=== PATIENT | male | born 1955 | race Caucasian/White ===

== ENCOUNTER 2019-01-06 07:39 | Outpatient (CLI) | payer OTHER ==
--- NOTE | 2019-01-06 09:11 | ULT ---
BILATERAL CAROTID DUPLEX ULTRASOUND: DATE: 01/06/19 HISTORY: Tingling in hand. TECHNIQUE: Amos scale ultrasound with color flow and spectral Doppler imaging of the extracranial carotid artery systems performed bilaterally. FINDINGS: No visible plaque or significant intimal wall thickening is seen. The peak systolic velocity in the right ICA measures 62 cm/second with an end-diastolic velocity of 1 0 cm/second and a systolic ratio of 0.50. The peak systolic velocity in the left ICA measures 96 cm/second with an end-diastolic velocity of 18 cm/second and a systolic ratio of 0.73. Flow in both vertebral arteries remains antegrade. IMPRESSION: No evidence of hemodynamically significant stenosis. POS: OFF
== END 2019-01-06 07:40 | disposition home or self-care (01) ==
LOC: BICULT 07:39
PROVIDERS: ATTEND Family Medicine
DX: G45.9 Transient cerebral ischemic attack, unspecified (principal); R20.2 Paresthesia of skin
CPT/HCPCS: 93880

== ENCOUNTER 2019-02-03 15:13 | Outpatient (CLI) | payer OTHER ==
[~2019-02-03 15:13] MED LIST: Gadobenate Dimeglumine 529 MG/1 ML (20ML VIAL) ONE
[2019-02-03 15:55] LABS: Estimated GFR-MDRD - POC Greater than 90
--- NOTE | 2019-02-03 17:17 | MRI ---
BRAIN MRI WITH AND WITHOUT CONTRAST: Indication: [id number] with TIA. FINDINGS: There is age appropriate size of the ventricular system. No mass effect, midline shift, or acute terr itorial infarction. No hemorrhage susceptibility of pathologic intraaxial enhancement. Skull base ayana w voids are patent. [place] intraocular lenses are absent. Scattered parenchymal signal abnormalities favor mild chronic ischemic disease. IMPRESSION: 1. No acute intracranial abnormalities. 2. Mild chronic ischemic disease of the cerebral white matter. POS: C
== END 2019-02-03 15:14 | disposition home or self-care (01) ==
LOC: BICMRI 15:13
PROVIDERS: ATTEND Family Medicine
DX: G45.9 Transient cerebral ischemic attack, unspecified (principal); R20.2 Paresthesia of skin; I67.82 Cerebral ischemia
CPT/HCPCS: 70553; 82565; A9577

== ENCOUNTER 2019-06-26 05:56 | Day surgery (SDC) | payer OTHER ==
[2019-06-25 10:34] VITALS: BMI 31.4
[2019-06-26] MEDS ORDERED: Fentanyl 100 MCG/2 ML VIAL ONE ×3 (06:17→09:37)
[2019-06-26] MEDS ORDERED: Midazolam HCl 2 mg/2 ml Vial ONE ×2 (06:17→07:10)
[2019-06-26] MEDS ORDERED: ceFAZolin Sodium (SDC) 2 GM/100 ML BAG ONE (06:37)
[2019-06-26] MEDS ORDERED: Neomycin-Polymyxin 1 ML AMP ONE (07:04)
--- NOTE | 2019-06-26 11:24 | OP ---
DATE OF PROCEDURE: 06/26/2019 PREOPERATIVE DIAGNOSIS: Right transverse patellar fracture. POSTOPERATIVE DIAGNOSIS: Right transverse patellar fracture. PROCEDURE PERFORMED: Open reduction and internal fixation of right patella. ANESTHESIA: General. SERVICE CASHIER: Ana Nichole PA-C TOURNIQUET TIME: 58 minutes at 300 mmHg. IMPLANTS: Synthes 3.5-mm partially-threaded cancellous screws with tension band wire. COMPLICATIONS: None. DRAINS: None. SPECIMENS: None. OUTCOME: Near anatomic alignment. INDICATIONS: The patient is a 63-year-old gentleman who is status post unicompartmental knee replacement on the right side and last week, sustained a ground level fall landing on the point of his knee. He sustained fracture of the patella with approximately 5-mm diastasis and about a 3-mm step-off the joint surface. After discussion with the patient including risks and benefits, we decided to proceed with open reduction and internal fixation. I believe all questions have been answered. Informed consent has been obtained. We did discuss risks and benefits of the procedure. Risks include, but are not limited to bleeding, infection, nerve injury, knee arthritis, hardware failure, knee pain, knee stiffness, loss of limb or life. The patient appears to understand and does wish to proceed. Consent has been obtained. DESCRIPTION OF PROCEDURE: The patient was brought to the operating room, and a time-out performed followed by induction of general anesthesia. He was then positioned supine on the OR table, and a sterile prep and drape was performed of the right lower extremity. Next, the limb was exsanguinated with Esmarch bandage, tourniquet inflated to 300 mmHg. A midline anterior knee incision was made, and after skin sharply incised, dissection was carried down to the underlying quadriceps mechanism. Next, the periosteum was elevated off the midportion of the patella, revealing the underlying fracture. The fracture hematoma was lavaged from the fracture gap and then the fracture reduced and held in place with a bone tenaculum. Next, a Garnett tenaculum was applied across the fracture. This reduced the fracture to near anatomic level as checked with AP and lateral C-arm imaging. Next, two 3.5-mm partially-threaded cancellous screws were passed from the superior pole down to inferior pole under C-arm guidance in standard fashion. This was then followed by passage of a cerclage wire through each of the two cannulated screws. These were brought into a elizabeth-cross type fashion and then tightened getting good compression across the fracture. These wires were then cut and bent to right angles to try and avoid soft tissue irritation. The final AP and lateral C-arm images showed near-anatomic alignment of the fracture. The wound was then irrigated after the knee hematoma was drained through a small medial arthrotomy. Next, closure was performed with 0 Vicryl deep followed by 2-0 Vicryl and jazlyn for the skin. Xeroform gauze, Webril, and Mitch wrap dressing applied to the knee, and the knee was placed back in his hinged knee brace with the brace locked in extension. The patient was then transferred to recovery room in stable condition. Tourniquet was let down at the completion of dressing. There were no complications. He tolerated the procedure well. Job ID: [id number]
--- NOTE | 2019-06-26 17:12 | RAD ---
EXAM: INTRAOPERATIVE FLUOROSCOPY 06/26/19 HISTORY: ORIF right patella. EXPOSURE: 37.5 seconds. 2.02 mGy. FINDINGS: Two fluoroscopic images demonstrate internal fixation hardware traversing the patella. Horizontal fra cture is noted. Hemiarthroplasty along the medial aspect of the right knee is identified. IMPRESSION: Intraoperative fluoroscopy as above. POS: DANIELLE
== END 2019-06-26 10:50 | disposition home or self-care (01) ==
LOC: SDC 05:56
PROVIDERS: ATTEND Orthopaedic Surgery
PROC: 0QSD04Z Reposition Right Patella with Internal Fixation Device, Open Approach (ICD-10-PCS; principal; 2019-06-26)
DX: S82.031A Displaced transverse fracture of right patella, initial encounter for closed fracture (principal); Z96.651 Presence of right artificial knee joint; W19.XXXA Unspecified fall, initial encounter
CPT/HCPCS: 76000; C1769; J0690; J2250; J3010

== ENCOUNTER 2020-04-14 06:55 | Outpatient (CLI) | payer OTHER ==
[2020-04-14 12:33] LABS: Prothrombin Time 13.2 sec (12.0-14.7)
[2020-04-14 12:38] LABS: Bacteria/HPF None Seen HPF (None Seen); Bilirubin Negative (Negative); Blood, Urine Negative (Negative); Clarity Clear (Clear); Glucose, Urine (Dipstick) Normal (Negative); Leukocyte Negative Leu/uL (Negative); Nitrite Negative (Negative); Protein, Urine (Dipstick) Negative (Neg-Trace); RBC/HPF 0-3 HPF (0-3); Squamous Epithelial 0-3 HPF (0-3); Urobilinogen Normal mg/dL (Less than 2); WBC/HPF 0-3 HPF (0-3)
[2020-04-14 12:47] LABS: Anion Gap 14 mmol/L (10-20); BUN (Urea Nitrogen) 11 mg/dL (8.4-25.7); Calc. Creatinine Clearance 0 mL/min (70-130); Carbon Dioxide 23 mmol/L (23-31); Chloride 97 mmol/L (98-107); Estimated GFR-MDRD Greater than 90; Glucose 86 mg/dL (80-115); Potassium 4.7 mmol/L (3.5-5.1); Sodium 129 mmol/L (136-145)
[2020-04-14 13:21] LABS: Band 2 % (5-11); Eosinophils 5 % (0-10); Lymphocytes 27 % (21-51); MDiff Complete? YES; Macrocytosis SLIGHT = 6-15 cells (100X) (0-5/hpf); Mean Corpuscular HGB CONC 33.2 g/dL (32.0-36.0); Mean Corpuscular Hemoglobin 34.4 pg (27.0-31.0); Mean Platelet Volume 6.8 fL (7.4-10.4); Monocytes 7 % (0-10); Neutrophil 25 % (42-75); Platelet Count 308 thou/uL (130-400); Platelet Morphology Comment Appears Adequate; Polychromasia SLIGHT = 2-3 cells (100X) (0-2/hpf); RBC Distribution Width 11.9 % (11.5-14.5); Reactive Lymphocytes 34 % (0-10); Red Blood Cell (RBC) Count 3.79 mill/uL (4.70-6.10); Target Cells SLIGHT = 2-5 cells (100X) (0-1/hpf); Tear Drops SLIGHT = 2-5 cells (100X) (0-1/hpf); White Blood Cell (WBC) Count 5.5 thou/uL (4.8-10.8)
[2020-04-14 18:40] LABS: SARS-CoV-2 MS2 Positive; SARS-CoV-2 N Gene Negative; SARS-CoV-2 S Gene Negative; SARS-CoV-2 orf1ab Negative
--- NOTE | 2020-04-14 22:04 | EKG ---
Test Reason : Blood Pressure : / mmHG Vent. Rate : 050 BPM Atrial Rate : 050 BPM P-R Int : 236 ms QRS Dur : 100 ms QT Int : 474 ms P-R-T Axes : 002 005 013 degrees QTc Int : 432 ms Sinus bradycardia with 1st degree A-V block Otherwise normal ECG No previous ECGs available Confirmed by Shell FLEMING ([id number]) on 04/14/2020 10:04:05 PM Referred By: ALIS Confirmed By:Shell FLEMING
== END 2020-04-14 06:56 | disposition home or self-care (01) ==
LOC: LABBT 06:55
PROVIDERS: ATTEND Orthopaedic Surgery
DX: Z01.818 Encounter for other preprocedural examination (principal); Z11.59 Encounter for screening for other viral diseases; T84.093A Other mechanical complication of internal left knee prosthesis, initial encounter
CPT/HCPCS: 80048; 81001; 85025; 85610; 87081; 87635; 93005; 93010; U0003

== ENCOUNTER 2020-04-14 11:30 | Inpatient (IN) | payer OTHER ==
[2020-04-14 11:21] VITALS: BMI 31.9
[2020-04-19] MEDS ORDERED: Sodium Chloride 0.9% 100 ML ONE (07:59)
[2020-04-19] MEDS ORDERED: Vancomycin 1.5 GRAM/300 ML BAG 1.5 GM/300 ML BAG ONE (07:59)
[2020-04-19] MEDS ORDERED: Tranexamic Acid 1,000 MG/10 ML VIAL ONE (07:59)
[2020-04-19] MEDS ORDERED: Midazolam HCl 2 mg/2 ml Vial ONE (08:29)
[2020-04-19] MEDS ORDERED: Fentanyl 100 MCG/2 ML VIAL ONE ×3 (08:29→13:22)
[2020-04-19] MEDS ORDERED: diphenhydrAMINE 25 MG CAP PO PRN (09:40)
[2020-04-19] MEDS ORDERED: Zolpidem Tartrate 5 MG TAB PO PRN ×2 (09:40→10:27)
[2020-04-19] MEDS ORDERED: Fentanyl 100 MCG/2 ML VIAL SLOW IVP PRN ×2 (09:40→10:28)
[2020-04-19] MEDS ORDERED: Acetaminophen 325 MG TAB PO PRN ×2 (09:40→10:27)
[2020-04-19] MEDS ORDERED: HYDROcodone/Acetaminophen 10/325 mg Tablet PO PRN ×3 (09:40→10:27)
[2020-04-19] MEDS ORDERED: Ondansetron PF 4 MG/2 ML Vial IVP PRN ×2 (09:40→10:27)
[2020-04-19] MEDS ORDERED: Promethazine HCl 25 MG/ML VIAL IM PRN ×2 (09:40→10:27)
[2020-04-19] MEDS ORDERED: PROPOFOL 200 MG/20 ML VIAL ONE (10:15)
[2020-04-19] MEDS ORDERED: Ropivacaine 0.2% HCl/PF (40 MG/20 ML VIAL) ONE (10:15)
[2020-04-19] MEDS ORDERED: Ketorolac Tromethamine 30 MG/ML VIAL ONE (10:15)
[2020-04-19] MEDS ORDERED: Lidocaine 1% PF 5 ML VIAL ONE (10:15)
[2020-04-19] MEDS ORDERED: Bupivacaine HCl 0.5%/Epinephrine 1:200,000/PF 30 ml Vial ONE (10:15)
[2020-04-19] MEDS ORDERED: Ondansetron PF 4 MG/2 ML Vial ONE (10:15)
[2020-04-19] MEDS ORDERED: Ropivacaine HCl/PF 250 ML in Premix Bag 1 BAG NERVE BLCK SCH (10:27)
[2020-04-19] MEDS ORDERED: traMADol HCl 50 MG TAB PO PRN ×2 (10:27)
[2020-04-19] MEDS ORDERED: Ketorolac Tromethamine 30 MG/ML VIAL IVP SCH (14:00)
--- NOTE | 2020-04-19 15:52 | RAD ---
LEFT KNEE TWO VIEWS: 04/19/20 INDICATION: Postop. COMPARISON: None. FINDINGS: There is a large constrained total knee prosthesis. There is scattered intra-articular and periarticu lar soft tissue gas consistent with recent postoperative state. The prosthetic component projects in the expected position without gross evidence of complication. IMPRESSION: Postoperative left knee. POS: [facility]
[2020-04-19] MEDS: Ketorolac Tromethamine 30 MG/ML VIAL IVP SCH ×3 (16:02→23:57)
[2020-04-19] MEDS: CEFAZOLIN 2 GM in Premix Bag 1 BAG IVPB SCH ×2 (16:57→23:57)
[2020-04-19] MEDS: Sodium Chloride 0.9% 1,000 ML IV SCH ×2 (16:57→17:54)
[2020-04-19] MEDS: Aspirin 81 mg Enteric Coated Tablet PO SCH (20:55)
[2020-04-20] MEDS: Sodium Chloride 0.9% 1,000 ML IV SCH ×2 (05:13→17:17)
[2020-04-20] MEDS: Ketorolac Tromethamine 30 MG/ML VIAL IVP SCH ×4 (05:16→23:04)
[2020-04-20 06:06] LABS: Hemoglobin 10.9 g/dL (14.0-18.0); Mean Corpuscular HGB CONC 33.9 g/dL (32.0-36.0); Mean Corpuscular Hemoglobin 35.4 pg (27.0-31.0); Mean Platelet Volume 6.3 fL (7.4-10.4); Platelet Count 227 thou/uL (130-400); RBC Distribution Width 11.8 % (11.5-14.5); Red Blood Cell (RBC) Count 3.09 mill/uL (4.70-6.10); White Blood Cell (WBC) Count 7.1 thou/uL (4.8-10.8)
--- NOTE | 2020-04-20 07:21 | OP ---
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 PROCEDURE PERFORMED: 1. Left revision total knee arthroplasty. 2. Removal of painful hardware from the left leg. LUNCHROOM WORKER: Дмитрий Johnson PA-C ESTIMATED BLOOD LOSS: About 400. SPECIMENS: Culture. DRAINS: None. COMPLICATION: None. DESCRIPTION OF PROCEDURE: After appropriate consent was obtained, the patient was taken to the operating room where general anesthesia was induced. The left leg was prepped and draped in the usual sterile fashion. I made a longitudinal incision, scar, was carefully dissected down to patella. A good deep plane was created. Medial parapatellar arthrotomy was performed and a synovectomy was performed. 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 The femur was removed with an oscillating saw. The tibia was removed with osteotomes. The big problem here was there was a bent screw through the cement mantle of the tibia. Using C-arm fluoroscopy and being very careful not to totally destroy the tibial tubercle and insertion of the patellar tendon, we identified the screw and removed it with some difficulty. Pulsatile irrigation was performed again. I then reamed the femur to 21 mm and the tibia to about 18 mm. I created a trial with a #6 tibial base plate and a 50-mm stem and then built the femoral component using the femoral trial cutting blocks, so the implant was a size 5 femur with a 21 mm stem and a 4 mm offset and 5 mm distal buildup on medially and laterally. After appropriate irrigation performed and after all implants were assembled, the implants were cemented into place. The polyethylene was inserted. Irrigation performed again. The patellar tendon defect was repaired with #1 Vicryl, the arthrotomy was repaired with #2 Vicryl and #2 Quill, subcu closed with 0 Quill, skin was closed with 2-0 Stratafix, skin glue was applied, and a sterile dressing applied. Overall tourniquet time was 1 hour and 18 minutes. Job ID: [id number]
[2020-04-20] MEDS: Senokot S 8.6-50 MG TAB PO SCH ×2 (07:55→21:02)
[2020-04-20] MEDS: Ferrous Gluconate 324 MG TAB PO SCH ×2 (07:56→17:59)
[2020-04-20] MEDS: Multivitamin W/ Minerals 1 TAB PO SCH (07:56)
[2020-04-20] MEDS: Sotalol HCl 80 MG TAB PO SCH (07:56)
[2020-04-20] MEDS: Aspirin 81 mg Enteric Coated Tablet PO SCH ×2 (07:56→21:01)
--- NOTE | 2020-04-20 13:12 | PRG ---
DATE OF SERVICE: 04/20/2020 SUBJECTIVE: Lucas is a 64-year-old male, postop day 1 from a revision left total knee arthroplasty. He is doing very well and he is quite comfortable postoperatively. He has no complaints. He ambulated 50 feet on day of surgery and 285 feet this morning. OBJECTIVE: VITAL SIGNS: Temperature is 98.2, pulse is 57, respiratory rate is 16 and nonlabored, O2 saturation is 98% on room air, blood pressure is 113/74. GENERAL: He is alert and oriented to person, place, time, and situation. Responsive and appropriate with examiner. EXTREMITIES: His incision is clean. He is neurovascularly intact in the left lower extremity. No strike through is noted. LABORATORY DATA: Hemoglobin and hematocrit 10.9 and 32.2. IMPRESSION: A 64-year-old male, postoperative day 1, left total knee arthroplasty revision, doing well. PLAN: Continue current care. Probable discharge home tomorrow. Job ID: [id number]
[2020-04-20] MEDS: HYDROcodone/Acetaminophen 10/325 mg Tablet PO PRN ×2 (15:23→23:03)
[2020-04-21] MEDS: Sodium Chloride 0.9% 1,000 ML IV SCH (03:14)
[2020-04-21] MEDS: Ketorolac Tromethamine 30 MG/ML VIAL IVP SCH (05:01)
[2020-04-21 05:43] LABS: Hemoglobin 9.7 g/dL (14.0-18.0); Mean Corpuscular HGB CONC 32.3 g/dL (32.0-36.0); Mean Corpuscular Hemoglobin 33.9 pg (27.0-31.0); Mean Platelet Volume 6.4 fL (7.4-10.4); Platelet Count 208 thou/uL (130-400); RBC Distribution Width 11.9 % (11.5-14.5); Red Blood Cell (RBC) Count 2.87 mill/uL (4.70-6.10); White Blood Cell (WBC) Count 7.6 thou/uL (4.8-10.8)
[2020-04-21] MEDS: Sotalol HCl 80 MG TAB PO SCH (07:49)
[2020-04-21] MEDS: Multivitamin W/ Minerals 1 TAB PO SCH (07:50)
[2020-04-21] MEDS: Ferrous Gluconate 324 MG TAB PO SCH (07:50)
[2020-04-21] MEDS: Senokot S 8.6-50 MG TAB PO SCH (07:51)
[2020-04-21] MEDS: Aspirin 81 mg Enteric Coated Tablet PO SCH (07:51)
[2020-04-21 08:05] VITALS: BP 127/81; TEMP 97.7
--- NOTE | 2020-04-22 14:26 | DIS ---
DATE OF ADMISSION: 04/19/2020 DATE OF DISCHARGE: 04/21/2020 DISCHARGE DISPOSITION: Home. ADMISSION DIAGNOSIS: Failed left total knee arthroplasty. DISCHARGE DIAGNOSIS: Failed left total knee arthroplasty. OPERATIVE PROCEDURE: Revision left total knee arthroplasty. CONSULTANTS: [facility] and [facility]. BRIEF CLINICAL HISTORY: Lucas is a 64-year-old male, who was admitted to [facility], underwent above procedure on date of admission without intra-, rae-, or postoperative complication. 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 His hospital course was essentially unremarkable. At the time of discharge, the patient is afebrile, he is ambulatory in a full weightbearing fashion utilizing a rolling walker, tolerating regular diet, voiding without difficulty. His incision is clean and closed without any erythema. DISCHARGE MEDICATIONS: Please see medication reconciliation form. We will be happy to see the patient on an as-needed basis between now and his next scheduled appointment. CONDITION ON DISCHARGE: Stable. PROGNOSIS: Good. Job ID: [id number]
== END 2020-04-21 10:42 | disposition home or self-care (01) | DRG 468 ==
LOC: SJJU 04-19 06:59
PROVIDERS: ADMIT Orthopaedic Surgery; ATTEND Orthopaedic Surgery
PROC: 0SPD0JZ Removal of Synthetic Substitute from Left Knee Joint, Open Approach (ICD-10-PCS; principal; 2020-04-19)
PROC: 0SRD0J9 Replacement of Left Knee Joint with Synthetic Substitute, Cemented, Open Approach (ICD-10-PCS; 2020-04-19)
DX: T84.093A Other mechanical complication of internal left knee prosthesis, initial encounter (principal); Y83.8 Other surgical procedures as the cause of abnormal reaction of the patient, or of later complication, without mention of misadventure at the time of the procedure; Z11.59 Encounter for screening for other viral diseases; F17.210 Nicotine dependence, cigarettes, uncomplicated; T84.84XA Pain due to internal orthopedic prosthetic devices, implants and grafts, initial encounter
CPT/HCPCS: 36415; 76000; 85027; 87070; 87205; B4083; C1713; C1776; C1781; J0670; J0690; J1885; J2001; J2250; J2405; J2704; J2795; J3010; J3370; J3490

== ENCOUNTER 2022-06-02 06:45 | Emergency (ER) | payer OTHER, SELFPAY ==
[2022-06-02] MEDS ORDERED: Ketorolac Tromethamine 30 MG/ML VIAL ONE (08:01)
== END 2022-06-02 08:03 | disposition home or self-care (01) ==
LOC: ERS 06:45
DX: M54.50 Low back pain, unspecified (principal); M25.561 Pain in right knee; G89.29 Other chronic pain; F17.210 Nicotine dependence, cigarettes, uncomplicated
CPT/HCPCS: 96372; 99283; J1885

== ENCOUNTER 2022-06-09 19:42 | Emergency (ER) | payer SELFPAY ==
[2022-06-09] MEDS ORDERED: Morphine 4 MG/ML VIAL ONE (21:00)
== END 2022-06-09 20:45 | disposition home or self-care (01) ==
LOC: ERS 19:42
DX: M25.561 Pain in right knee (principal); M54.50 Low back pain, unspecified; G89.29 Other chronic pain; I48.91 Unspecified atrial fibrillation
CPT/HCPCS: 93005; 96372; J2270

== ENCOUNTER 2022-07-23 05:39 | Inpatient (IN) | payer BC ==
[2022-07-23] MEDS ORDERED: Tranexamic Acid 1,000 MG/10 ML VIAL ONE (06:06)
[2022-07-23] MEDS ORDERED: Sodium Chloride 0.9% 100 ML ONE ×2 (06:06→06:47)
[2022-07-23] MEDS ORDERED: Dexmedetomidine 200 MCG/2 ML VIAL ONE (06:14)
[2022-07-23] MEDS ORDERED: fentaNYL Citrate/PF 100 MCG/2 ML SYRINGE ONE ×2 (06:14→07:44)
[2022-07-23] MEDS ORDERED: Midazolam HCl 2 mg/2 ml Vial ONE (06:14)
[2022-07-23] MEDS ORDERED: Vancomycin (BATCH) 1.5 GRAM/300 ML BAG ONE (06:22)
[2022-07-23] MEDS ORDERED: Bupivacaine PF 0.5% 30 ML VIAL ONE ×2 (06:27→09:58)
[2022-07-23] MEDS ORDERED: Ondansetron PF 4 MG/2 ML Vial ONE (06:44)
[2022-07-23] MEDS ORDERED: Glycopyrrolate 0.2 MG/ML 5 ML SYRINGE ONE (06:44)
[2022-07-23] MEDS ORDERED: Dexamethasone 20 MG/5 ML VIAL ONE (06:44)
[2022-07-23] MEDS ORDERED: PROPOFOL 200 MG/20 ML VIAL ONE (06:44)
[2022-07-23] MEDS ORDERED: ePHEDrine 50 MG/ML VIAL ONE (06:44)
[2022-07-23] MEDS ORDERED: Ropivacaine 0.5% HCl/PF (150 MG/30 ML VIAL) ONE (06:44)
[2022-07-23] MEDS ORDERED: CEFAZOLIN 2 GM VIAL ONE (06:47)
[2022-07-23] MEDS ORDERED: Promethazine HCl 25 MG/ML VIAL IM PRN ×3 (06:58→09:22)
[2022-07-23] MEDS ORDERED: diphenhydrAMINE 25 MG CAP PO PRN (06:58)
[2022-07-23] MEDS ORDERED: Zolpidem Tartrate 5 MG TAB PO PRN ×2 (06:58→07:45)
[2022-07-23] MEDS ORDERED: HYDROcodone/Acetaminophen 10/325 mg Tablet PO PRN ×3 (06:58→07:45)
[2022-07-23] MEDS ORDERED: Ondansetron PF 4 MG/2 ML Vial IVP PRN ×2 (06:58→07:45)
[2022-07-23] MEDS ORDERED: Acetaminophen 325 MG TAB PO PRN (06:58)
[2022-07-23] MEDS: Sodium Chloride 0.9% 1,000 ML IV SCH ×3 (07:00→15:02)
[2022-07-23] MEDS ORDERED: Fentanyl 100 MCG/2 ML VIAL IV PRN (07:38)
[2022-07-23] MEDS ORDERED: Ropivacaine 0.2% 550 ML 550 ML NERVE BLCK SCH (07:45)
[2022-07-23] MEDS ORDERED: traMADol HCl 50 MG TAB PO PRN ×2 (07:45)
[2022-07-23] MEDS: Ferrous Gluconate 324 MG TAB PO SCH ×2 (08:00→17:32)
[2022-07-23] MEDS: Aspirin 81 mg Enteric Coated Tablet PO SCH ×2 (09:00→20:39)
[2022-07-23] MEDS: Sotalol HCl 80 MG TAB PO SCH (09:00)
[2022-07-23] MEDS ORDERED: Fentanyl 100 MCG/2 ML VIAL ONE ×2 (09:16→10:16)
[2022-07-23] MEDS ORDERED: Promethazine HCl 25 MG/ML VIAL IVPB PRN (09:22)
[2022-07-23] MEDS ORDERED: Ondansetron HCl/PF 4 MG/2 ML Vial IVP PRN (09:22)
[2022-07-23] MEDS: Ketorolac Tromethamine 30 MG/ML VIAL IVP SCH ×3 (13:52→23:40)
[2022-07-23] MEDS ORDERED: Ketorolac Tromethamine 30 MG/ML VIAL IVP SCH (14:00)
[2022-07-23] MEDS: CEFAZOLIN 2 GM in Sodium Chloride 0.9% 100 ML IVPB SCH ×2 (16:21→23:39)
[2022-07-23] MEDS: HYDROcodone/Acetaminophen 10/325 mg Tablet PO PRN (22:07)
[2022-07-24] MEDS: Sodium Chloride 0.9% 1,000 ML IV SCH (04:30)
[2022-07-24] MEDS: Ketorolac Tromethamine 30 MG/ML VIAL IVP SCH (05:48)
[2022-07-24 06:07] LABS: Hemoglobin 11.1 g/dL (14.0-18.0); Mean Corpuscular HGB CONC 34.4 g/dL (32.0-36.0); Mean Corpuscular Hemoglobin 35.1 pg (27.0-31.0); Mean Platelet Volume 6.7 fL (7.4-10.4); Platelet Count 263 thou/uL (130-400); RBC Distribution Width 11.6 % (11.5-14.5); Red Blood Cell (RBC) Count 3.15 mill/uL (4.70-6.10); White Blood Cell (WBC) Count 6.6 thou/uL (4.8-10.8)
[2022-07-24] MEDS: HYDROcodone/Acetaminophen 10/325 mg Tablet PO PRN (07:01)
[2022-07-24 08:28] VITALS: BP 106/67; TEMP 97.7
[2022-07-24] MEDS ORDERED: Senokot S 8.6-50 MG TAB PO SCH (09:00)
[2022-07-24] MEDS ORDERED: Multivitamin W/ Minerals 1 TAB PO SCH (09:00)
[2022-07-24] MEDS: Sotalol HCl 80 MG TAB PO SCH (09:05)
[2022-07-24] MEDS: Aspirin 81 mg Enteric Coated Tablet PO SCH (09:08)
[2022-07-24] MEDS: Ferrous Gluconate 324 MG TAB PO SCH (09:08)
== END 2022-07-24 09:55 | disposition home or self-care (01) | DRG 468 ==
LOC: SDC 05:39 → SJJU 13:15 → EDSTATUS 15:30
PROVIDERS: ADMIT Orthopaedic Surgery; ATTEND Orthopaedic Surgery
PROC: 0SPC0JZ Removal of Synthetic Substitute from Right Knee Joint, Open Approach (ICD-10-PCS; principal; 2022-07-23)
PROC: 0SRC0J9 Replacement of Right Knee Joint with Synthetic Substitute, Cemented, Open Approach (ICD-10-PCS; 2022-07-23)
DX: T84.032A Mechanical loosening of internal right knee prosthetic joint, initial encounter (principal); Y83.8 Other surgical procedures as the cause of abnormal reaction of the patient, or of later complication, without mention of misadventure at the time of the procedure; Z20.822 Contact with and (suspected) exposure to COVID-19; Z96.652 Presence of left artificial knee joint; Z79.899 Other long term (current) drug therapy
CPT/HCPCS: 36415; 76000; 85027; 87070; 87205; A4306; C1713; C1776; J0690; J1100; J1885; J2250; J2405; J2704; J2795; J3010; J3370; J3490; J7050; S0020

== ENCOUNTER 2023-01-25 16:54 | Inpatient (IN) | payer BC, MEDICARE ==
[2023-01-25 17:21] LABS: #Basophils 0.1 thou/uL (0.0-0.2); #Eosinphils 0.1 thou/uL (0.0-0.7); #Lymphocytes 1.7 thou/uL (1.20-3.40); #Monocytes 0.7 thou/uL (0.11-0.59); #Neutrophils 8.1 thou/uL (1.40-6.50); %Basophils 0.6 % (0.0-1.0); %Eosinophils 1.3 % (0.0-10.0); %Lymphocytes 15.9 % (21.0-51.0); %Monocytes 6.8 % (0.0-10.0); %Neutrophils 75.4 % (42.0-75.0); Mean Corpuscular HGB CONC 34.4 g/dL (32.0-36.0); Mean Corpuscular Hemoglobin 34.6 pg (27.0-31.0); Mean Platelet Volume 5.9 fL (7.4-10.4); Platelet Count 307 10x3/uL (130-400); RBC Distribution Width 12.3 % (11.5-14.5); Red Blood Cell (RBC) Count 3.75 mill/uL (4.70-6.10); White Blood Cell (WBC) Count 10.8 10x3/uL (4.8-10.8)
[2023-01-25 17:42] LABS: ALT (SGPT) 13 U/L (8-55); AST (SGOT) 15 U/L (5-34); Albumin 4.2 g/dL (3.4-4.8); Alkaline Phosphatase 55 U/L (40-110); Anion Gap 13 mmol/L (10-20); BUN (Urea Nitrogen) 10 mg/dL (8.4-25.7); Bilirubin, Total 0.8 mg/dL (0.2-1.2); Calc. Creatinine Clearance 0 mL/min (70-130); Calcium 8.8 mg/dL (7.8-10.44); Carbon Dioxide 23 mmol/L (23-31); Chloride 94 mmol/L (98-107); Estimated GFR 98; Globulin 3.1 g/dL (2.4-3.5); Glucose 107 mg/dL (80-115); Potassium 3.9 mmol/L (3.5-5.1); Protein, Total 7.3 g/dL (5.8-8.1); Sodium 126 mmol/L (136-145)
[2023-01-25 19:33] LABS: Bilirubin Negative (Negative); Blood, Urine Negative (Negative); Clarity Clear (Clear); Glucose, Urine (Dipstick) Normal (Negative); Ketone, Urine 10 mg/dL (Negative); Leukocyte Negative Leu/uL (Negative); Nitrite Negative (Negative); Protein, Urine (Dipstick) Negative (Neg-Trace); Specific Gravity, Urine 1.012 (1.002-1.036); Urobilinogen Normal mg/dL (Less than 2); pH, Urine 6.5 (5.0-9.0)
[2023-01-25] MEDS ORDERED: Ketorolac Tromethamine 30 MG/ML VIAL ONE (19:50)
[2023-01-25] MEDS ORDERED: Acetaminophen 500 MG TAB ONE (19:50)
[2023-01-25] MEDS ORDERED: Lidocaine Viscous Sol 2% 15 ml UD Cup ONE (19:50)
[2023-01-25] MEDS ORDERED: Milk Of Magnesia 30 ML UDCUP ONE (19:50)
[2023-01-25] MEDS ORDERED: LORazepam 2 MG/ML SYR.(CARPUJECT) ONE (20:09)
[2023-01-25] MEDS ORDERED: Piperacillin/Tazobactam 4.5 GM VIAL ONE (21:33)
[2023-01-25] MEDS ORDERED: Vancomycin 1 GM/200 ML (FROZEN) BAG ONE (21:47)
[2023-01-25 23:05] LABS: SARS-CoV-2 NAA Rapid Test Not Detected (NotDetected)
[2023-01-25] MEDS ORDERED: Acetaminophen 325 MG TAB PO PRN (23:45)
[2023-01-25] MEDS ORDERED: Ondansetron ODT 4 MG TAB SL PRN (23:45)
[2023-01-25] MEDS ORDERED: Ondansetron PF 4 MG/2 ML Vial IVP PRN (23:45)
[2023-01-25] MEDS ORDERED: Lorazepam 2 MG/ML VIAL SLOW IVP PRN (23:59)
[2023-01-26] MEDS: Sodium Chloride 0.9% 1,000 ML IV SCH ×2 (00:20→08:20)
[2023-01-26 00:37] VITALS: BMI 30.2
[2023-01-26] MEDS: Piperacillin/Tazobactam 3.375 GM in Sodium Chloride 0.9% 100 ML IVPB SCH ×2 (02:11→09:13)
[2023-01-26] MEDS ORDERED: Morphine 4 MG/ML VIAL SLOW IVP PRN (08:36)
[2023-01-26] MEDS ORDERED: Morphine 2 MG/ML VIAL SLOW IVP PRN (08:36)
[2023-01-26] MEDS ORDERED: hydrALAZINE 20 MG/ML VIAL SLOW IVP PRN (08:36)
[2023-01-26] MEDS ORDERED: Ondansetron PF 4 MG/2 ML Vial IVP PRN (08:36)
[2023-01-26] MEDS ORDERED: Promethazine HCl 25 MG/ML VIAL IM PRN ×2 (08:36→12:13)
[2023-01-26] MEDS ORDERED: Ipratropium/Albuterol 3 ML NEB NEB PRN (08:36)
[2023-01-26] MEDS ORDERED: Piperacillin/Tazobactam 3.375 GM in Sodium Chloride 0.9% 100 ML IVPB SCH (08:45)
[2023-01-26] MEDS ORDERED: Lactated Ringer's 1,000 ML IV SCH (08:45)
[2023-01-26] MEDS: Famotidine 20 MG TAB PO SCH ×2 (08:55→20:10)
[2023-01-26] MEDS: Famotidine/PF 20 mg/2ml Vial SLOW IVP SCH ×2 (09:05→20:13)
[2023-01-26] MEDS ORDERED: Morphine 4 MG/ML VIAL ONE (10:12)
[2023-01-26] MEDS ORDERED: Bupivacaine HCl 0.5%/Epinephrine 1:200,000/PF 30 ml Vial ONE (11:27)
[2023-01-26] MEDS ORDERED: fentaNYL PF 100 MCG/2 ML SYRINGE ONE (11:33)
[2023-01-26] MEDS ORDERED: Ondansetron PF 4 MG/2 ML Vial ONE (11:52)
[2023-01-26] MEDS ORDERED: Vecuronium 10 MG VIAL ONE (11:52)
[2023-01-26] MEDS ORDERED: NEOSTIGMINE 3 MG/3 ML SYR 3 MG/3 ML SYRINGE ONE (11:52)
[2023-01-26] MEDS ORDERED: Glycopyrrolate 0.2 MG/ML 5 ML SYRINGE ONE (11:52)
[2023-01-26] MEDS ORDERED: Succinylcholine Chloride 100 MG/5 ML SYRINGE FS ONE (11:52)
[2023-01-26] MEDS ORDERED: Ketorolac Tromethamine 30 MG/ML VIAL ONE (11:52)
[2023-01-26] MEDS ORDERED: PROPOFOL 200 MG/20 ML VIAL ONE (11:52)
[2023-01-26] MEDS ORDERED: Dexamethasone 20 MG/5 ML VIAL ONE (11:52)
[2023-01-26] MEDS ORDERED: Morphine Sulfate 2 MG/ML SYRINGE SLOW IVP PRN (12:13)
[2023-01-26] MEDS ORDERED: HYDROmorphone 2 MG/ML VIAL SLOW IVP PRN (12:13)
[2023-01-26] MEDS ORDERED: Ondansetron HCl/PF 4 MG/2 ML Vial IVP PRN (12:13)
[2023-01-26] MEDS ORDERED: PACU-Morphine 4MG/ML VIAL SLOW IVP PRN (12:13)
[2023-01-26] MEDS ORDERED: HYDROcodone/Acetaminophen 5/325 mg Tablet PO PRN ×2 (13:24)
[2023-01-26] MEDS ORDERED: Metoprolol Tartrate 5 MG/5 ML VIAL ONE (13:41)
[2023-01-26] MEDS ORDERED: Metoprolol Tartrate 5 MG/5 ML VIAL IVP PRN (13:46)
[2023-01-26] MEDS ORDERED: Multivit, Therapeutic 1 TAB PO SCH (14:15)
[2023-01-26] MEDS: Ketorolac Tromethamine 30 MG/ML VIAL IVP SCH ×3 (15:06→23:54)
[2023-01-26 16:13] LABS: Anion Gap 15 mmol/L (10-20); BUN (Urea Nitrogen) 8 mg/dL (8.4-25.7); Calc. Creatinine Clearance 150 mL/min (70-130); Calcium 8.6 mg/dL (7.8-10.44); Carbon Dioxide 17 mmol/L (23-31); Chloride 103 mmol/L (98-107); Estimated GFR 101; Glucose 93 mg/dL (80-115); Sodium 131 mmol/L (136-145)
[2023-01-26] MEDS ORDERED: Diltiazem HCl 125 MG, Admixture Fee 1 EACH in Sodium Chloride 0.9% 100 ML IVPB SCH (16:30)
[2023-01-26 16:33] LABS: Free T4 (Free Thyroxine) 1.02 ng/dL (0.70-1.48); Thyroid Stimulating Hormone 0.6771 uIU/mL (0.35-4.94)
[2023-01-26] MEDS: Folic Acid 1 MG, Thiamine HCl 100 MG in Dextrose 5 %-0.45 % NaCl 1,000 ML IV SCH (18:46)
[2023-01-26] MEDS ORDERED: Acetaminophen 325 MG TAB PO PRN (20:36)
[2023-01-27 05:18] LABS: Anion Gap 8 mmol/L (10-20); BUN (Urea Nitrogen) 10 mg/dL (8.4-25.7); Calc. Creatinine Clearance 161 mL/min (70-130); Calcium 8.4 mg/dL (7.8-10.44); Carbon Dioxide 24 mmol/L (23-31); Chloride 100 mmol/L (98-107); Estimated GFR 103; Glucose 127 mg/dL (80-115); Potassium 3.7 mmol/L (3.5-5.1); Sodium 128 mmol/L (136-145)
[2023-01-27] MEDS: Ketorolac Tromethamine 30 MG/ML VIAL IVP SCH ×3 (05:59→17:59)
[2023-01-27] MEDS: Famotidine 20 MG TAB PO SCH ×2 (08:39→20:43)
[2023-01-27] MEDS: Multivit, Therapeutic 1 TAB PO SCH (08:40)
[2023-01-27] MEDS ORDERED: Flecainide 50 MG TAB PO SCH (10:45)
[2023-01-27] MEDS: Famotidine/PF 20 mg/2ml Vial SLOW IVP SCH (13:55)
[2023-01-27] MEDS: Folic Acid 1 MG, Thiamine HCl 100 MG in Dextrose 5 %-0.45 % NaCl 1,000 ML IV SCH (15:54)
[2023-01-28 05:16] LABS: Anion Gap 13 mmol/L (10-20); BUN (Urea Nitrogen) 12 mg/dL (8.4-25.7); Calc. Creatinine Clearance 144 mL/min (70-130); Calcium 8.7 mg/dL (7.8-10.44); Carbon Dioxide 23 mmol/L (23-31); Chloride 98 mmol/L (98-107); Estimated GFR 99; Glucose 83 mg/dL (80-115); Potassium 3.8 mmol/L (3.5-5.1); Sodium 130 mmol/L (136-145)
[2023-01-28] MEDS ORDERED: Heparin 10,000 UNITS/ 10 ML VIAL ONE (06:22)
[2023-01-28] MEDS ORDERED: Verapamil 5 MG/2 ML VIAL ONE (06:22)
[2023-01-28] MEDS ORDERED: Lidocaine 1% (PF) 30 ML VIAL ONE (06:22)
[2023-01-28] MEDS ORDERED: Adenosine 6 MG/2 ML VIAL ONE (06:22)
[2023-01-28] MEDS ORDERED: Nitroglycerin 50 MG/250 ML BOT 0 ML ONE (06:22)
[2023-01-28] MEDS: Ketorolac Tromethamine 30 MG/ML VIAL IVP SCH ×3 (07:13→11:35)
[2023-01-28 08:02] VITALS: TEMP 98.2
[2023-01-28] MEDS: Famotidine 20 MG TAB PO SCH (08:52)
[2023-01-28] MEDS: Multivit, Therapeutic 1 TAB PO SCH (08:52)
[2023-01-28] MEDS ORDERED: Thiamine 100 MG TAB PO SCH (09:00)
[2023-01-28] MEDS ORDERED: Folic Acid 1 MG TAB PO SCH (09:00)
[2023-01-28 11:48] VITALS: BP 163/102
[2023-01-29] MEDS ORDERED: FLU VACC QS2022-23(65YR UP)/PF 240 MCG/0.7 ML SYRINGE IM ONE (09:00)
== END 2023-01-28 15:00 | disposition home or self-care (01) | DRG 339 ==
LOC: ERS 16:54 → SURG B 22:16 → SURG A 01-26 14:20 → 2NO 01-26 14:46
PROVIDERS: ADMIT Surgery; ATTEND Internal Medicine
PROC: 0DTJ4ZZ Resection of Appendix, Percutaneous Endoscopic Approach (ICD-10-PCS; principal; 2023-01-26)
DX: K35.32 Acute appendicitis with perforation, localized peritonitis, and gangrene, without abscess (principal); E87.1 Hypo-osmolality and hyponatremia; Z96.653 Presence of artificial knee joint, bilateral; M19.90 Unspecified osteoarthritis, unspecified site; F10.10 Alcohol abuse, uncomplicated; I48.0 Paroxysmal atrial fibrillation; Z20.822 Contact with and (suspected) exposure to COVID-19; Z90.49 Acquired absence of other specified parts of digestive tract; Z98.890 Other specified postprocedural states; Z90.81 Acquired absence of spleen; Z91.14 Patient's other noncompliance with medication regimen
CPT/HCPCS: 36415; 36416; 74176; 80048; 80053; 81003; 84439; 84443; 84481; 85025; 88304; 93005; 93010; 93306; 96361; 96365; 96375; A4649; C1889; J0153; J1100; J1644; J1885; J2001; J2060; J2270; J2405; J2543; J2704; J3370-JW; J3411; J3490; J7042; J7050; J7120; S0028; U0002

== ENCOUNTER 2023-03-01 05:45 | Day surgery (SDC) | payer MEDICARE ==
[2023-02-27 12:38] VITALS: BMI 28.2
[2023-03-01] MEDS ORDERED: Lidocaine 1% PF 5 ML VIAL ONE (09:56)
[2023-03-01] MEDS ORDERED: PROPOFOL 200 MG/20 ML VIAL ONE (09:56)
[2023-03-01] MEDS ORDERED: Flecainide 50 MG TAB PO SCH ×2 (11:00→21:00)
== END 2023-03-01 11:45 | disposition home or self-care (01) ==
LOC: SDC 05:45
PROVIDERS: ATTEND Internal Medicine Cardiovascular Disease
PROC: 5A2204Z Restoration of Cardiac Rhythm, Single (ICD-10-PCS; principal; 2023-03-01)
DX: I48.0 Paroxysmal atrial fibrillation (principal); I08.1 Rheumatic disorders of both mitral and tricuspid valves; F10.10 Alcohol abuse, uncomplicated; E66.9 Obesity, unspecified; Z68.29 Body mass index [BMI] 29.0-29.9, adult; Z96.653 Presence of artificial knee joint, bilateral; Z90.81 Acquired absence of spleen; Z79.01 Long term (current) use of anticoagulants; Z79.899 Other long term (current) drug therapy
CPT/HCPCS: 92960; 93005; 93010; 93312; J2704

== ENCOUNTER 2023-07-31 05:46 | Day surgery (SDC) | payer MEDICARE ==
[2023-07-26 16:17] VITALS: BMI 29.5
[2023-07-26 16:54] LABS: Hemoglobin 13.4 g/dL (13.5-17.5); Mean Corpuscular HGB CONC 35.3 g/dL (32.0-36.0); Mean Corpuscular Hemoglobin 33.7 pg (27.0-33.0); Mean Corpuscular Volume 95.5 fl (81.2-95.1); Platelet Count 299 10x3/uL (150-450); RBC Distribution Width 12.6 % (11.5-14.5); Red Blood Cell (RBC) Count 3.98 10x6/uL (4.32-5.72); White Blood Cell (WBC) Count 6.4 10x3/uL (3.5-10.5)
[2023-07-26 17:15] LABS: PTT 29.8 sec (22.0-33.0); Prothrombin Time 10.8 sec (9.5-12.1)
[2023-07-26 17:16] LABS: Anion Gap 14 mmol/L (10-20); BUN (Urea Nitrogen) 13 mg/dL (8.4-25.7); Calc. Creatinine Clearance 139 mL/min (70-130); Calcium 9.4 mg/dL (7.8-10.44); Carbon Dioxide 22 mmol/L (23-31); Chloride 98 mmol/L (98-107); Estimated GFR 99; Glucose 85 mg/dL (80-115); Potassium 4.5 mmol/L (3.5-5.1); Sodium 129 mmol/L (136-145)
[2023-07-31] MEDS ORDERED: Heparin 25,000 units/D5W 500 ML ONE (06:51)
[2023-07-31] MEDS ORDERED: Heparin 10,000 UNITS/ 10 ML VIAL ONE (06:51)
[2023-07-31] MEDS ORDERED: Protamine Sulfate 50 MG/5 ML VIAL ONE (06:51)
[2023-07-31] MEDS ORDERED: Vasopressin 20 UNITS/ML VIAL ONE (07:08)
[2023-07-31] MEDS ORDERED: fentaNYL PF 100 MCG/2 ML SYRINGE ONE ×2 (07:08→11:51)
[2023-07-31] MEDS ORDERED: SUGAMMADEX SODIUM 200 MG/2 ML VIAL ONE (07:08)
[2023-07-31] MEDS ORDERED: Dexamethasone 20 MG/5 ML VIAL ONE (07:57)
[2023-07-31] MEDS ORDERED: Vecuronium 10 MG VIAL ONE (07:57)
[2023-07-31] MEDS ORDERED: NEOSTIGMINE 3 MG/3 ML SYR 3 MG/3 ML SYRINGE ONE (07:57)
[2023-07-31] MEDS ORDERED: Glycopyrrolate 0.2 MG/ML 5 ML SYRINGE ONE (07:57)
[2023-07-31] MEDS ORDERED: Rocuronium Bromide 10 MG/ML (10ML VIAL) ONE (07:57)
[2023-07-31] MEDS ORDERED: Ondansetron PF 4 MG/2 ML Vial ONE (07:57)
[2023-07-31] MEDS ORDERED: PROPOFOL 200 MG/20 ML VIAL ONE (07:57)
[2023-07-31] MEDS ORDERED: Lidocaine 1% PF 5 ML VIAL ONE (07:57)
[2023-07-31] MEDS ORDERED: Isoproterenol 0.2 MG/1 ML AMP ONE (09:00)
== END 2023-07-31 16:10 | disposition home or self-care (01) ==
LOC: SDC 05:46
PROVIDERS: ATTEND Internal Medicine Cardiovascular Disease
DX: I48.0 Paroxysmal atrial fibrillation (principal); I08.3 Combined rheumatic disorders of mitral, aortic and tricuspid valves; I48.3 Typical atrial flutter; Z79.83 Long term (current) use of bisphosphonates; Z90.49 Acquired absence of other specified parts of digestive tract; Z79.01 Long term (current) use of anticoagulants; Z79.899 Other long term (current) drug therapy
CPT/HCPCS: 80048; 85027; 85347 ×2; 85610; 85730; 93005; 93622; 93623; 93655; 93656; 93657; C1732 ×3; C1759; C1760; C1894 ×2; 93010; J1100; J1644; J2405; J2704; J2720

== ENCOUNTER 2023-09-09 05:53 | Day surgery (SDC) | payer MEDICARE ==
[2023-09-06 15:57] VITALS: BMI 29.5
[2023-09-06 16:40] LABS: Hematocrit 35.8 % (38.8-50.0); Hemoglobin 12.6 g/dL (13.5-17.5); Mean Corpuscular HGB CONC 35.2 g/dL (32.0-36.0); Mean Corpuscular Hemoglobin 33.6 pg (27.0-33.0); Mean Corpuscular Volume 95.5 fl (81.2-95.1); Mean Platelet Volume 8.9 fl (7.4-10.4); Platelet Count 281 10x3/uL (150-450); RBC Distribution Width 12.2 % (11.5-14.5); Red Blood Cell (RBC) Count 3.75 10x6/uL (4.32-5.72)
[2023-09-06 16:41] LABS: PTT 30.2 sec (22.0-33.0); Prothrombin Time 11.2 sec (9.5-12.1)
[2023-09-06 18:30] LABS: Anion Gap 17 mmol/L (10-20); BUN (Urea Nitrogen) 13 mg/dL (8.4-25.7); Calc. Creatinine Clearance 139 mL/min (70-130); Calcium 8.8 mg/dL (7.8-10.44); Carbon Dioxide 19 mmol/L (23-31); Chloride 101 mmol/L (98-107); Estimated GFR 99; Glucose 86 mg/dL (80-115); Potassium 4.4 mmol/L (3.5-5.1); Sodium 133 mmol/L (136-145)
[2023-09-09] MEDS ORDERED: PROPOFOL 200 MG/20 ML VIAL ONE (07:54)
== END 2023-09-09 09:03 | disposition home or self-care (01) ==
LOC: SDC 05:53
PROVIDERS: ATTEND Internal Medicine Cardiovascular Disease
PROC: 5A2204Z Restoration of Cardiac Rhythm, Single (ICD-10-PCS; principal; 2023-09-09)
DX: I48.0 Paroxysmal atrial fibrillation (principal); I48.3 Typical atrial flutter; Z79.01 Long term (current) use of anticoagulants; Z90.49 Acquired absence of other specified parts of digestive tract
CPT/HCPCS: 80048; 85027; 85610; 85730; 92960; 93005; 93010; J2704

== ENCOUNTER → 2023-12-23 | Day surgery (SDC) | payer MEDICARE ==
[2023-12-20 09:17] VITALS: BMI 29.5
[~2023-12-23] MED LIST changes: -Gadobenate Dimeglumine 529 MG/1 ML (20ML VIAL) ONE; +PROPOFOL 20 ML ONE
[2023-12-23 06:46] LABS: #Basophils 0.1 thou/uL (0.0-0.2); #Eosinphils 0.4 thou/uL (0.0-0.7); #Monocytes 0.5 thou/uL (0.11-0.59); #Neutrophils 1.2 thou/uL (1.40-6.50); %Basophils 1.5 % (0.0-1.0); %Eosinophils 7.9 % (0.0-10.0); %Lymphocytes 54.8 % (21.0-51.0); %Neutrophils 25.6 % (42.0-75.0); Hematocrit 40.2 % (42.0-52.0); Hemoglobin 13.9 g/dL (14.0-18.0); Mean Corpuscular HGB CONC 34.6 g/dL (32.0-36.0); Mean Corpuscular Hemoglobin 33.5 pg (27.0-31.0); Mean Corpuscular Volume 96.9 fl (78.0-98.0); Mean Platelet Volume 8.9 fL (7.4-10.4); Platelet Count 271 10x3/uL (130-400); Red Blood Cell (RBC) Count 4.15 mill/uL (4.70-6.10); White Blood Cell (WBC) Count 4.7 10x3/uL (4.8-10.8)
[2023-12-23 07:13] LABS: Anion Gap 10 mmol/L (10-20); BUN (Urea Nitrogen) 17 mg/dL (8.4-25.7); Calc. Creatinine Clearance 126 mL/min (70-130); Calcium 9.4 mg/dL (7.8-10.44); Carbon Dioxide 24 mmol/L (23-31); Chloride 99 mmol/L (98-107); Estimated GFR 96; Glucose 86 mg/dL (80-115); Potassium 4.4 mmol/L (3.5-5.1); Sodium 129 mmol/L (136-145)
== END ==
LOC: SDC 05:48
PROVIDERS: ATTEND Internal Medicine Cardiovascular Disease
PROC: B245ZZ4 Ultrasonography of Left Heart, Transesophageal (ICD-10-PCS; principal; 2023-12-23)
DX: I48.0 Paroxysmal atrial fibrillation (principal); I48.92 Unspecified atrial flutter; I08.2 Rheumatic disorders of both aortic and tricuspid valves
CPT/HCPCS: 80048; 85025; 93005; 93010; 93312; J2704

== ENCOUNTER 2024-01-08 06:38 | Day surgery (SDC) | payer MEDICARE ==
[2024-01-03 15:16] VITALS: BMI 29.5
[2024-01-03 15:58] LABS: Hematocrit 39.5 % (38.8-50.0); Mean Corpuscular HGB CONC 35.4 g/dL (32.0-36.0); Mean Corpuscular Hemoglobin 33.7 pg (27.0-33.0); Mean Platelet Volume 8.8 fl (7.4-10.4); Platelet Count 345 10x3/uL (150-450); RBC Distribution Width 12.5 % (11.5-14.5); Red Blood Cell (RBC) Count 4.16 10x6/uL (4.32-5.72); White Blood Cell (WBC) Count 6.5 10x3/uL (3.5-10.5)
[2024-01-03 16:02] LABS: Anion Gap 13 mmol/L (10-20); BUN (Urea Nitrogen) 16 mg/dL (8.4-25.7); Calc. Creatinine Clearance 131 mL/min (70-130); Calcium 9.1 mg/dL (7.8-10.44); Carbon Dioxide 24 mmol/L (23-31); Chloride 99 mmol/L (98-107); Estimated GFR 97; Glucose 86 mg/dL (80-115); Potassium 4.4 mmol/L (3.5-5.1); Sodium 132 mmol/L (136-145)
[2024-01-03 16:06] LABS: PTT 29.4 sec (22.0-33.0); Prothrombin Time 10.8 sec (9.5-12.1)
[2024-01-08] MEDS ORDERED: Protamine Sulfate 50 MG/5 ML VIAL ONE ×2 (08:55→13:48)
[2024-01-08] MEDS ORDERED: Heparin 10,000 UNITS/ 10 ML VIAL ONE (08:55)
[2024-01-08] MEDS ORDERED: Heparin 25,000 units/D5W 500 ML ONE (10:10)
[2024-01-08] MEDS ORDERED: Isoproterenol 0.2 MG/1 ML AMP ONE (10:10)
[2024-01-08] MEDS ORDERED: Lidocaine 1% PF 5 ML VIAL ONE (10:25)
[2024-01-08] MEDS ORDERED: Rocuronium Bromide 10 MG/ML (10ML VIAL) ONE (10:25)
[2024-01-08] MEDS ORDERED: PHENYLEPHRINE-NS 100 MCG/ML 10 ML SYRINGE ONE ×2 (10:25→13:11)
[2024-01-08] MEDS ORDERED: PROPOFOL 200 MG/20 ML VIAL ONE (10:25)
[2024-01-08] MEDS ORDERED: Calcium Chloride 1 GM/10 ML Abboject SYRINGE ONE (10:25)
[2024-01-08] MEDS ORDERED: fentaNYL 50 mcg/mL 1 mL Vial ONE ×2 (10:45→12:53)
[2024-01-08] MEDS ORDERED: SUGAMMADEX SODIUM 200 MG/2 ML VIAL ONE (14:04)
== END 2024-01-08 18:00 | disposition home or self-care (01) ==
LOC: SDC 06:38
PROVIDERS: ATTEND Internal Medicine Cardiovascular Disease
PROC: 02583ZZ Destruction of Conduction Mechanism, Percutaneous Approach (ICD-10-PCS; principal; 2024-01-08)
DX: I48.0 Paroxysmal atrial fibrillation (principal); I48.3 Typical atrial flutter; I48.4 Atypical atrial flutter; Z79.01 Long term (current) use of anticoagulants; Z90.49 Acquired absence of other specified parts of digestive tract
CPT/HCPCS: 80048; 85027; 85347 ×2; 85610; 85730; 93005; 93623; 93655; 93656; 93657; C1732; C1759; C1760; C1884; C1893; C1894 ×3; C2630; J3010; 93010; J1644; J2704; J2720